=== PATIENT | female | born 1935 | race Asian ===

== ENCOUNTER 2022-12-23 09:53 | Inpatient (IN) | payer OTHER, MEDICAID ==
[~2022-12-23] VITALS: Ht 160 cm; Wt 52.6 kg
[2022-12-23 10:02] VITALS: BP_SYST 148; PULSE 67; RESP 16; TEMP 97.7; O2SAT 98
[2022-12-23 10:42] LABS: BASOPHILS % (AUTO) 0.5 % (0.0-2.0); EOSINOPHILS % (AUTO) 0.2 % (0.0-4.0); HEMATOCRIT 36.8 % (36-48); HEMOGLOBIN 13.1 g/dL (12.0-16.0); LYMPHOCYTES # (AUTO) 1.7 K/uL (1.0-5.5); LYMPHOCYTES % (AUTO) 25.9 % (20.5-51.5); MEAN CORPUSCULAR HEMOGLOBIN 32 pg (27-31); MEAN CORPUSCULAR HGB CONC 36 % (32-36); MEAN CORPUSCULAR VOLUME 89 fL (79.0-98.0); MONOCYTES # (AUTO) 0.5 K/uL (0.0-1.0); MONOCYTES % (AUTO) 6.8 % (1.7-9.3); NEUTROPHILS # (AUTO) 4.5 K/uL (1.8-7.7); NEUTROPHILS % (AUTO) 66.6 % (40.0-70.0); PLATELET COUNT (AUTO) 245 K/uL (130-430); RED BLOOD CELL COUNT(AUTO) 4.15 MIL/uL (4.2-6.2); RED CELL DISTRIBUTION WIDTH 12.8 % (9.0-15.0); WHITE BLOOD COUNT (AUTO) 6.7 K/uL (4.8-10.8)
[2022-12-23 10:52] LABS: ANION GAP 8 (5-15); CALCIUM 8.8 mg/dL (8.4-11.0); CARBON DIOXIDE 26 mmol/L (23-29); CHLORIDE 89 mmol/L (98-107); CREATININE 0.93 mg/dL (0.55-1.30); GLUCOSE 165 mg/dL (74-106); SODIUM SERUM 123 mmol/L (136-145); UREA NITROGEN, BLOOD 12 mg/dL (8-21)
[2022-12-23 10:57] LABS: ACETONE, SERUM NEGATIVE (NEGATIVE)
[2022-12-23 11:02] LABS: INR 0.9 (0.8-1.2); PROTHROMBIN TIME 9.5 SECS (9.5-12.5)
[2022-12-23 11:11] LABS: ALANINE AMINOTRANSFERASE 13 U/L (12-78); ALBUMIN 4.4 g/dL (3.4-4.8); ASPARTATE AMINOTRANSFERASE 21 U/L (10-37); TOTAL BILIRUBIN 0.9 mg/dL (0.0-1.0); TOTAL PROTEIN, SERUM 8.1 g/dL (6.4-8.3)
[2022-12-23 11:12] LABS: AMYLASE 83 U/L (0-100); LIPASE 155 U/L (73-393)
[2022-12-23] MEDS ORDERED: HYDR-4038 PO (12:08)
[2022-12-23] MEDS ORDERED: AMLO5TAB4 PO (12:08)
[2022-12-23] MEDS ORDERED: OLME20TA74 PO (12:08)
[2022-12-23] MEDS ORDERED: AMLO2.5T2 PO (12:08)
[2022-12-23] MEDS ORDERED: ACETAMINOPHEN 325 MG TABLET PO PRN (13:30)
[2022-12-23] MEDS ORDERED: MUPIROCIN 2% TOPICAL OINTMENT 22 GM NS PRN (13:30)
[2022-12-23] MEDS ORDERED: LORazepam 2 MG/ML VIAL IVP PRN (13:30)
[2022-12-23] MEDS ORDERED: DOCUSATE SODIUM 100 MG CAPSULE PO PRN (13:30)
[2022-12-23] MEDS ORDERED: POTASSIUM CHLORIDE 20 MEQ TAB.PRT.SR PO PRN (13:30)
[2022-12-23] MEDS ORDERED: ZOLPIDEM TARTRATE 5 MG TABLET PO PRN (13:30)
[2022-12-23] MEDS ORDERED: ONDANSETRON HCL 4 MG/2 ML VIAL IVP PRN (13:30)
[2022-12-23] MEDS ORDERED: MAGNESIUM SULFATE 50 ML IV PRN (13:30)
[2022-12-23] MEDS ORDERED: MORPHINE 2 MG/ML INJ. SYRINGE IVP PRN ×2 (13:30)
[2022-12-23] MEDS ORDERED: LISINOPRIL 10 MG TABLET (PRINIVIL) PO ONE (15:00)
[2022-12-23 16:45] VITALS: BP_SYST 141; PULSE 51; RESP 16; TEMP 98.5; O2SAT 97
[2022-12-23 18:39] VITALS: O2SAT 98
[2022-12-23 18:52] VITALS: BP_SYST 133; PULSE 49; RESP 18; TEMP 98.9
[2022-12-23 20:00] VITALS: BP_SYST 124; PULSE 54; RESP 18; TEMP 97.4; O2SAT 98
[2022-12-23] MEDS: HEPARIN SODIUM,PORCINE 5,000 UNITS/ML VIAL SUBCUT SCH (21:12)
[2022-12-23 21:30] VITALS: BP_SYST 124; PULSE 54; RESP 18; TEMP 97.4; O2SAT 98
[2022-12-23] MEDS ORDERED: ATROPINE SULFATE 1 MG/10 ML SYRINGE IVP PRN (23:00)
[2022-12-24 00:37] VITALS: BP_SYST 115; PULSE 51; RESP 20; TEMP 97; O2SAT 97
[2022-12-24 03:45] LABS: ANION GAP 5 (5-15); CALCIUM 8.4 mg/dL (8.4-11.0); CARBON DIOXIDE 28 mmol/L (23-29); CHLORIDE 97 mmol/L (98-107); GLUCOSE 114 mg/dL (74-106); POTASSIUM 4.5 mmol/L (3.5-5.1); SODIUM SERUM 130 mmol/L (136-145); UREA NITROGEN, BLOOD 15 mg/dL (8-21)
[2022-12-24 03:46] LABS: BASOPHILS % (AUTO) 0.2 % (0.0-2.0); EOSINOPHILS % (AUTO) 0.2 % (0.0-4.0); HEMATOCRIT 34.5 % (36-48); HEMOGLOBIN 12.1 g/dL (12.0-16.0); LYMPHOCYTES # (AUTO) 1.4 K/uL (1.0-5.5); LYMPHOCYTES % (AUTO) 14.8 % (20.5-51.5); MEAN CORPUSCULAR HEMOGLOBIN 31 pg (27-31); MEAN CORPUSCULAR HGB CONC 35 % (32-36); MEAN CORPUSCULAR VOLUME 89 fL (79.0-98.0); MONOCYTES # (AUTO) 0.7 K/uL (0.0-1.0); NEUTROPHILS # (AUTO) 7.5 K/uL (1.8-7.7); NEUTROPHILS % (AUTO) 77.8 % (40.0-70.0); PLATELET COUNT (AUTO) 227 K/uL (130-430); RED BLOOD CELL COUNT(AUTO) 3.87 MIL/uL (4.2-6.2); RED CELL DISTRIBUTION WIDTH 12.7 % (9.0-15.0); WHITE BLOOD COUNT (AUTO) 9.6 K/uL (4.8-10.8)
[2022-12-24] MEDS ORDERED: PANTOPRAZOLE SODIUM 40 MG TAB PO ONE (07:45)
[2022-12-24 08:00] VITALS: BP_SYST 126; PULSE 71; RESP 17; TEMP 97.7; O2SAT 98
[2022-12-24] MEDS ORDERED: LISINOPRIL 10 MG TABLET (PRINIVIL) PO SCH (09:00)
[2022-12-24] MEDS: HEPARIN SODIUM,PORCINE 5,000 UNITS/ML VIAL SUBCUT SCH (10:35)
[2022-12-24 11:41] VITALS: BP_SYST 117; PULSE 55; RESP 16; TEMP 98.6; O2SAT 98
[2022-12-24 12:14] VITALS: BP_SYST 117; PULSE 55; RESP 17; TEMP 98.6; O2SAT 98
== END 2022-12-24 13:15 | disposition home or self-care (01) | DRG 392 ==
LOC: SED 09:53 → STU 16:27
PROVIDERS: ADMIT General Practice; ATTEND General Practice
DX: K21.9 Gastro-esophageal reflux disease without esophagitis (principal); E87.1 Hypo-osmolality and hyponatremia; E78.5 Hyperlipidemia, unspecified; I10 Essential (primary) hypertension
CPT/HCPCS: 36415; 71045; 80048; 80053; 82009; 82150; 83037; 83605; 83690; 83735; 83880; 84443; 84484; 85025; 85610-TC; 85730-TC; 93005; 93306; 99285; G0378; J1644; J2270